=== PATIENT | female | born 1965 | race African-American/Black ===

== ENCOUNTER 2024-03-31 15:09 | Emergency (ER) | payer OTHER ==
[~2024-03-31] VITALS: Ht 165.1 cm; Wt 78.0 kg
[2024-03-31 15:17] VITALS: BP 151/92; PULSE 105; RESP 18; TEMP 98.1; O2SAT 100
[2024-03-31] MEDS ORDERED: IBUPROFEN 600MG TABLET PO ONE (16:30)
[2024-03-31 17:41] LABS: BASOPHILS % 0.4 % (0.0-2.0); HEMATOCRIT. 44.2 % (36.0-48.0); LYMPHOCYTES % 20.6 % (20.0-50.0); MEAN CORPUSCULAR HEMOGLOBIN 33.4 pg (28.0-32.0); MEAN CORPUSCULAR HGB CONC 33.9 g/dL (31.0-37.0); MEAN CORPUSCULAR VOLUME 98.4 fL (81.0-99.0); MEAN PLATELET VOLUME 8.2 fl (7.4-10.4); MONOCYTES % 6.4 % (2.0-8.0); NEUTROPHILS % 72.6 % (40.0-76.0); PLATELET 317 x1000/uL (130-400); RED CELL DISTRIBUTION WIDTH 12.5 % (11.6-14.6); WHITE BLOOD COUNT 8.7 x1000/uL (4.5-11.0)
[2024-03-31 18:15] LABS: CHLORIDE 108 mEq/L (98-107); POTASSIUM 4.1 mEq/L (3.5-5.1); SODIUM 141 mEq/L (136-145)
[2024-03-31 18:16] LABS: CALCIUM 9.4 mg/dL (8.7-10.4); CARBON DIOXIDE 20 mEq/L (21-32)
[2024-03-31 18:21] LABS: CREATININE 0.6 mg/dL (0.6-1.0); GLUCOSE 91 mg/dL (70-105); UREA NITROGEN BLOOD 7 mg/dL (9-23)
== END 2024-03-31 21:14 | disposition left against medical advice (07) ==
LOC: ER 15:09
DX: S10.90XA Unspecified superficial injury of unspecified part of neck, initial encounter (principal); R51.9 Headache, unspecified; I10 Essential (primary) hypertension; Z65.3 Problems related to other legal circumstances; V43.52XA Car driver injured in collision with other type car in traffic accident, initial encounter; Y93.89 Activity, other specified; Y92.410 Unspecified street and highway as the place of occurrence of the external cause; Y99.8 Other external cause status
CPT/HCPCS: 36415; 80048; 85025; 99283